=== PATIENT | female | born 1955 | race Two or more races ===

== ENCOUNTER 2024-10-30 10:04 | Outpatient (CLI) | payer BC, MEDICARE ==
[~2024-10-30] VITALS: Ht 157.5 cm; Wt 103.9 kg
[2024-10-30] MEDS ORDERED: ADENOSINE 90 MG/30 ML INJ IV ONE (11:16)
[2024-10-30] MEDS ORDERED: ADENOSINE 87 MG in GIVE UN-DILUTED 0 ML IV ONE (13:45)
== END 2024-10-30 17:00 | disposition home or self-care (01) ==
LOC: Rad HDHVI 10:04
PROVIDERS: ATTEND Internal Medicine Cardiovascular Disease
DX: I49.3 Ventricular premature depolarization (principal); I48.91 Unspecified atrial fibrillation; I10 Essential (primary) hypertension; R06.02 Shortness of breath; E78.00 Pure hypercholesterolemia, unspecified; R42 Dizziness and giddiness; Z82.49 Family history of ischemic heart disease and other diseases of the circulatory system
CPT/HCPCS: 78452; 93017; A9500; J0153

== ENCOUNTER 2024-11-02 08:51 | Outpatient (CLI) | payer BC, MEDICARE ==
--- NOTE | 2024-11-02 15:05 | DVHSR ---
APPROVED REPORT EXAM: LIMITED Two-dimensional and M-mode echocardiogram with Doppler and color Doppler. RISK FACTORS Obesity: DIMENSIONS LVDd4.7 (3.8-5.7cm)LA (2D)3.7 (1.9-4.0cm)Aortic Root2.8 (2.0-3.7cm) LVDs3.3 (2.5-4.0cm)LA (MM) (1.9-4.0cm)Aortic Cusp Exc1.7 (1.5-2.0cm) EF (%) 55.0 (55-70%)Rt. Atrium4.0 (1.9-4.0cm)Asc. Aorta cm IVSd1.0 (0.7-1.1cm)RV (D) (1.8-2.4cm) PWd0.9 (0.7-1.1cm) Mitral Valve MitralMitral Stenosis E wave1.30m/sMV Mean GR.mmHg A wave0.80m/sMV Peak GR.mmHg E/A ratio1.62D MVAcm2 Aortic Valve Aortic ValveAortic Stenosis V10.60m/Judie Mean GR.4mmHg V21.30m/Judie Peak GR.7mmHg Pulmonic Valve V20.50m/s LEFT VENTRICLE The left ventricle is normal size. The left ventricle is normal in structure and function. The Ejection Fraction is within normal limits. RIGHT VENTRICLE The right ventricle is normal size. ATRIA The left atrial size is normal. The right atrium size is normal. The interatrial septum is intact with no evidence for an atrial septal defect. MITRAL VALVE The mitral valve is normal in structure and function. Mitral regurgitation is trace to mild. PULMONIC VALVE The pulmonic valve is not well visualized. TRICUSPID VALVE The tricuspid valve is grossly normal. AORTIC VALVE The aortic valve opens well. No aortic regurgitation is present. GREAT VESSELS The aortic root is normal size. PERICARDIAL EFFUSION There is no pericardial effusion. Other Information Quality : Technically LimitedRhythm : Atrial Fibrillation Technically limited study due to body habitus. Conclusion EF 55%
== END 2024-11-02 17:00 | disposition home or self-care (01) ==
LOC: Rad HDHVI 08:51
PROVIDERS: ATTEND Internal Medicine Cardiovascular Disease
DX: I34.0 Nonrheumatic mitral (valve) insufficiency (principal); I48.91 Unspecified atrial fibrillation; R06.02 Shortness of breath; E66.9 Obesity, unspecified
CPT/HCPCS: 93306

== ENCOUNTER 2025-01-23 08:55 | Outpatient (CLI) | payer MEDICARE ==
[2025-01-23 09:06] VITALS: BP 137/79; PULSE 63; RESP 18; O2SAT 96
[2025-01-23] MEDS ORDERED: MULT-1018 PO (10:14)
[2025-01-23] MEDS ORDERED: ATOR40TA52 PO (10:14)
[2025-01-23] MEDS ORDERED: AMIO200T33 PO (10:14)
[2025-01-23] MEDS ORDERED: ACET-1080 PO (10:14)
[2025-01-23] MEDS ORDERED: APIX5TAB PO (10:14)
[2025-01-23] MEDS ORDERED: METO-159 PO (10:14)
[2025-01-23] MEDS ORDERED: FURO40TA4 PO (10:14)
[2025-01-23] MEDS ORDERED: METO1TAB9 PO (11:40)
[2025-01-23] MEDS ORDERED: LOSA-533 PO (11:42)
== END 2025-01-23 17:00 | disposition home or self-care (01) ==
LOC: CHF HDHVI 08:55
PROVIDERS: ATTEND Internal Medicine Cardiovascular Disease
DX: Z01.810 Encounter for preprocedural cardiovascular examination (principal); I48.20 Chronic atrial fibrillation, unspecified; R06.02 Shortness of breath
CPT/HCPCS: 93005; G0463

== ENCOUNTER 2025-01-24 07:08 | Day surgery (SDC) | payer MEDICARE ==
[2025-01-23 10:16] LABS: Hematocrit 41.0 % (36.0-46.0); Hemoglobin 13.9 g/dL (12.2-16.2); Mean Corpuscular Hemoglobin 30.2 pg (28.0-32.0); Mean Corpuscular Volume 89.1 fL (80.0-100.0); Nucleated Red Blood Cells % 0.0 %
[2025-01-23 10:47] LABS: Chloride 104 mmol/L (98-107); Potassium 4.1 mmol/L (3.5-5.1); Sodium 141 mmol/L (136-145)
[2025-01-23 10:48] LABS: Anion Gap 8 (5-15); Carbon Dioxide 29 mmol/L (20-31)
[2025-01-23 10:49] LABS: Calcium 9.1 mg/dL (8.7-10.4)
[2025-01-23 10:53] LABS: BUN/Creatinine Ratio 10.3 (10.0-20.0); Blood Urea Nitrogen 12 mg/dL (9-23)
[2025-01-23 10:55] LABS: Glucose 116 mg/dL (74-106)
[2025-01-23 11:08] LABS: INR 1.08 (0.9-1.15); Partial Thromboplastin Time 29.7 SEC (24.5-34.5); Prothrombin Time 11.4 sec (9.3-11.8)
[~2025-01-24] VITALS: Ht 157.5 cm; Wt 101.2 kg
[2025-01-24] VITALS (9 sets, daily range): BP systolic 118–140; BP diastolic 57–79; PULSE 70–71; RESP 10–13; O2SAT 93–96
[~2025-01-24 07:08] MED LIST: ACET-1080 PO; AMIO200T33 PO; APIX5TAB PO; ATOR40TA52 PO; FURO40TA4 PO; LOSA-533 PO; METO1TAB9 PO; MULT-1018 PO
[2025-01-24] MEDS: ceFAZolin 1GM/50ML 50 ML IV ONE (09:23)
[2025-01-24] MEDS: MIDAZOLAM HCL 2MG/2ML 2ml VIAL (1mg/ml) ONE (09:23)
[2025-01-24] MEDS: VANCOMYCIN HCL 1000 MG VL ONE (09:23)
[2025-01-24] MEDS: fentaNYL CITRATE 100 MCG/2 ML VL ONE (09:23)
[2025-01-24] MEDS: LIDOCAINE 2%HCL (LOCAL ANESTH.) INJ 20ML MDV ONE ×2 (09:23→09:50)
[2025-01-24] MEDS: IOHEXOL 350 MG/ML 100ML IJ ONE (09:48)
[2025-01-24] MEDS: ONDANSETRON HCL 4 MG/2 ML VIAL ONE (10:53)
--- NOTE | 2025-01-24 11:15 | DVH ---
CHEST RADIOGRAPH Indication: S/P PACEMAKER Technique: Single frontal view of the chest was obtained COMPARISON: XY CHEST TWO VIEWS ROUTINE on DOS: 01/23/25 FINDINGS: Lines and Tubes: Left chest wall pacemaker Lungs: Clear Pleura: No effusion. No pneumothorax. Cardiomediastinal contours: Cardiomegaly Bones: Unremarkable IMPRESSION: No acute disease.
--- NOTE | 2025-01-24 11:45 | DVHDS ---
DATE OF DISCHARGE: 01/24/2025 DISCHARGE DIAGNOSES: Atrial fibrillation, sick sinus syndrome, hypercoagulable state, marked bradycardia with near syncope. HOSPITAL COURSE: The patient underwent successful dual chamber permanent pacemaker implantation. She is clinically stable. ALLERGIES: She is allergic to KEFLEX. MEDICATIONS: I will put her on doxycycline 100 mg p.o. b.i.d. for 5 days. Hold anticoagulation for 5 days for atrial fibrillation as well. FOLLOWUP: Follow up with me in 1 week. Stable at the time of discharge. DISPOSITION: Home. ACTIVITY: As instructed. DIET: Will be 2 grams sodium diet. Taye Urbina MD SA/LALI TID: [id number] RECEIPT: [id number]
--- NOTE | 2025-01-24 12:02 | DVHOP ---
DATE OF SURGERY: 01/24/2025 PROCEDURE PERFORMED: Dual chamber permanent pacemaker. INDICATION: Sick sinus syndrome, paroxysmal atrial fibrillation, hypercoagulable state, near syncopal episode, marked bradycardia with pauses. DESCRIPTION OF PROCEDURE: The patient was prepped and draped under sterile condition. Then, 1% Xylocaine was used to anesthetize the left subclavicular region. The patient being massively obese, we were not able to reach percutaneously the subclavian vein. Venography was performed. Then, we were able to reach the left subclavian vein, more in an axillary approach. Following that, by Seldinger technique, a guidewire was then appropriately . Then, using a 10 blade, a linear incision was made. Using blunt dissection and electrocautery, pocket was then dissected out. Using a 9-Khmer peel-away sheath, a right ventricular active fixation lead was then appropriately positioned. Using a 7-Khmer peel-away sheath, a right atrial active fixation lead was appropriately positioned. Parameters were obtained. Thresholds were obtained and the patient's generator was implanted and pocket was closed using 3-0 Monoderm subcutaneous sutures followed 3-0 Monoderm subreticular sutures. There were no complications. The patient tolerated the procedure well. RESULTS: * The patient has a Biotronik MRI compatible dual chamber permanent pacemaker, Amvia Edge DR-T, model #034871, serial #[id number]. RV lead is Solia S53, model #164297, serial #[id number]. Atrial lead is Solia S45, model #778474, serial #[id number]. * Threshold parameters: Atrium P wave is in AFib, P wave amplitude of 2.1 mV, impedance of 565 ohms. Right ventricular lead R wave amplitude of 15.1 mV, threshold 0.5 V at 0.4 milliseconds pulse duration, pacing impedance of 775 ohms. CONCLUSION: The patient had successful implantation of an MRI compatible Biotronik dual chamber permanent pacemaker. Taye Urbina MD SA/YOAV/ROMA TID: [id number] RECEIPT: [id number]
--- NOTE | 2025-01-24 12:27 | DVHHP ---
ADMIT DATE: 01/24/2025 HISTORY OF PRESENT ILLNESS: The patient who is 69 years old, morbidly obese with now with marked bradycardia with pauses. She is becoming dizzy, symptomatic, and several near syncopal episodes. Because of the presentation, it was felt that the patient should undergo a permanent pacemaker implantation. The patient has paroxysmal atrial fibrillation, sick sinus syndrome. She is not able to tolerate any beta-shanae and she has episodes of tachycardia, marked bradycardia, therefore, AFib cannot be treated adequately for her fast heart rate without a permanent pacemaker. At this time, risks and benefits were explained to the patient. The patient understands and agrees. PAST MEDICAL HISTORY: Pertinent medical history is significant for: * Morbid obesity. * Sleep apnea. * Hypertension. * Hyperlipidemia. * Osteoarthritis. She has been on a diet and she has lost 7 pounds since I saw her about a month ago. FAMILY HISTORY: Negative. SOCIAL HISTORY: Negative. No history of current use of tobacco or alcohol use. REVIEW OF SYSTEMS: She denies any fever, chills, melena, or hematochezia. No hematemesis or hemoptysis. Denies any true syncopal episode. Denies any mixed connective tissue disease. Denies any irritable bowel syndrome. No history of any urinary tract infection. No history of pneumonia. She has no COPD. PHYSICAL EXAMINATION: VITAL SIGNS: Blood pressure is 142/82, pulse of 48 and regular. O2 saturation 96% on 2 liters. HEENT: Pupils are reactive. Funduscopic exam shows no AV nicking. No heart exudates. No papilledema. Extraocular muscles are intact. Sclerae are anicteric. Oral mucosa moist. Posterior pharynx without any exudates. NECK: No JVD appreciated. Carotid pulses are 2+ and symmetrical. Normal upstroke and contour. PULMONARY: Clear to auscultation. However, distant breath sounds because of morbid obesity. CARDIOVASCULAR: Similarly distant heart sounds as well. Without S3, without S4, PMI is not displaced. ABDOMEN: Obese, unable to appreciate organomegaly. Stool guaiac is negative. NEUROLOGIC: The patient is intact but being overweight, has a difficult time ambulating. ASSESSMENT AND PLAN: Thus, the patient has sick sinus syndrome, paroxysmal atrial fibrillation, hypercoagulable state, hypertension, hyperlipidemia with near syncopal episode, now to undergo permanent pacemaker implantation because of sick sinus syndrome. We would make further recommendations after. Taye Urbina MD SA/RAÚL/ROMA TID: [id number] RECEIPT: [id number]
--- NOTE | 2025-01-24 16:48 | ECG ---
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
== END 2025-01-24 13:10 | disposition home or self-care (01) ==
LOC: CATH 07:08
PROVIDERS: ATTEND Internal Medicine Cardiovascular Disease
DX: I49.5 Sick sinus syndrome (principal); I48.0 Paroxysmal atrial fibrillation; R55 Syncope and collapse; R00.1 Bradycardia, unspecified; I10 Essential (primary) hypertension; I48.20 Chronic atrial fibrillation, unspecified; E78.5 Hyperlipidemia, unspecified; G47.30 Sleep apnea, unspecified; M19.90 Unspecified osteoarthritis, unspecified site; E66.01 Morbid (severe) obesity due to excess calories; Z68.41 Body mass index [BMI] 40.0-44.9, adult; Z79.01 Long term (current) use of anticoagulants; Z88.1 Allergy status to other antibiotic agents; Z88.8 Allergy status to other drugs, medicaments and biological substances; Z88.5 Allergy status to narcotic agent
CPT/HCPCS: 33208; 36415; 71045; 80048; 85025; 85610; 85730; 93005; C1785; J0690; J2250; J2405; J3010; J3373; J7030; Q9967; 99152; 99153